=== PATIENT | female | born 1945 | race Caucasian/White ===

== ENCOUNTER 2018-08-11 01:53 | Outpatient (CLI) | payer BC, SELFPAY ==
[2018-08-11 09:20] LABS: HCT 37.2 % (36.0-46.0); HGB 12.5 g/dL (12.0-15.5)
[2018-08-11 10:04] LABS: ALT 20 U/L (12-78); AST 12 U/L (15-37); Albumin 3.4 g/dL (3.4-5.0); Alkaline Phosphatase 82 U/L (46-116); BUN 17 mg/dL (7-18); Bilirubin, Total 0.5 mg/dL (0.2-1.0); CREATININE 0.82 mg/dL (0.55-1.02); Calcium 9.3 mg/dL (8.5-10.1); Chloride 102 mmol/L (98-107); Glucose 101 mg/dL (70-100); Potassium 3.6 mmol/L (3.5-5.1); Sodium 141 mmol/L (136-145); Total Protein 6.6 g/dL (6.4-8.2)
== END 2018-08-11 02:13 ==
DX: R63.4 Abnormal weight loss (principal); E07.9 Disorder of thyroid, unspecified; I10 Essential (primary) hypertension
CPT/HCPCS: 36415; 80053; 85014; 85018

== ENCOUNTER 2019-09-04 01:27 | Outpatient (CLI) | payer BC, SELFPAY ==
--- NOTE | 2019-09-04 14:40 | DI.MAMMO_ITS ---
EXAM: MG MAMMO SCREENING CLINICAL HISTORY: screening,z12.39 TECHNIQUE: Mammograms were interpreted according to the usual protocol including computer analysis w Twonq CAD system, tomosynthesis and C-view imaging. COMPARISON: [id number] FINDINGS: The breasts are composed of scattered areas of fibroglandular density, breast density category B. Th ere are no significant masses or signficant microcalcifications. There has been no significant interv al change when compared with prior images. IMPRESSION: Category 1, negative mammogram. Yearly screening mammography is recommended. BI-RADS Cat 1 - Negative Breast Density - Category B - Scattered areas of fibroglandular density
== END 2019-09-04 01:47 ==
DX: Z12.31 Encounter for screening mammogram for malignant neoplasm of breast (principal)
CPT/HCPCS: 77063; 77067

== ENCOUNTER 2020-10-02 03:27 | Outpatient (CLI) | payer MEDICARE, BC, SELFPAY ==
[2020-10-02 11:37] LABS: ALT 16 U/L (14-59); AST 16 U/L (15-37); Albumin 3.7 g/dL (3.4-5.0); Alkaline Phosphatase 82 U/L (46-116); BUN 23 mg/dL (7-18); Bilirubin, Total 0.3 mg/dL (0.2-1.0); CREATININE 0.98 mg/dL (0.55-1.02); Calcium 8.8 mg/dL (8.5-10.1); Calculated LDL 99 mg/dL (<100); Chloride 101 mmol/L (98-107); Cholesterol 166 mg/dL (<200); Estimated GFR 55.33 (mL/min/1.73m2); Glucose 105 mg/dL (74-106); HDL Cholesterol 50 mg/dL (40-60); Potassium 3.9 mmol/L (3.5-5.1); Sodium 136 mmol/L (136-145); TSH (W/Ref FT4) 1.16 uIU/mL (0.36-3.74); Total Protein 6.4 g/dL (6.4-8.2); Triglyceride 88 mg/dL (<150)
== END 2020-10-02 03:47 ==
DX: E03.9 Hypothyroidism, unspecified (principal); I10 Essential (primary) hypertension; Z68.35 Body mass index [BMI] 35.0-35.9, adult; G47.00 Insomnia, unspecified; C4A.39 Merkel cell carcinoma of other parts of face
CPT/HCPCS: 36415; 80053; 80061; 84443

== ENCOUNTER 2020-10-06 01:06 | Outpatient (CLI) | payer MEDICARE, BC, SELFPAY ==
--- NOTE | 2020-10-06 07:15 | DI.MAMMO_ITS ---
EXAM: MG MAMMO SCREENING CLINICAL HISTORY: screening,Z12.39. TECHNIQUE: Bilateral full field digital CC and MLO mammographic images were obtained with 3D tomosyn thesis and utilizing computer aided detection (CAD). COMPARISON: Prior mammograms dating back to 2009, the most recent being August 2019. FINDINGS: Small nodular density medially in the right breast is unchanged from prior studies and therefore jose gn. There are no new dominant masses nor malignant appearing microcalcification groups. Microcalcificatio n group in the right breast located 8 centimetres in from the nipple is unchanged from prior studies. But by other benign microcalcifications are noted bilaterally. There is no new architectural disto rtion nor skin thickening-retraction. IMPRESSION: Stable benign findings. No radiographic evidence of malignancy. BI-RADS Category 2 - Benign Findings Breast Density - Category B - Scattered areas of fibroglandular density Breast density Category C or D implies that the patient has dense breast tissue. Dense breast tissue can make it harder to find cancer on a mammogram. Dense breast tissue is also associated with an incr eased risk of breast cancer. This information about the result of the mammogram report was provided to the patient to raise their awareness. Use this report when you speak with the patient about their risks for breast cancer, which includes their family history. At that time, you may recommend additional screening tests (Ultrasoun d or MRI) as these tests may add significant information. A negative radiographic report should not delay biopsy if a dominant or clinically suspicious mass is present. Up to ten percent of cancers are not identified on mammography. A negative report may reinforce clinical impression. Adenosis and dense breasts may obscure an underlying neoplasm. False positive reports average 6 to 10%. Patient will receive a letter notifying them of these results.
== END 2020-10-06 01:26 ==
DX: Z12.31 Encounter for screening mammogram for malignant neoplasm of breast (principal)
CPT/HCPCS: 77063; 77067

== ENCOUNTER 2021-09-08 08:44 | Outpatient (CLI) | payer MEDICARE, BC, SELFPAY ==
[2021-09-09 01:41] LABS: BUN 15 mg/dL (7-18); CREATININE 0.9 mg/dL (0.55-1.02); Calcium 9.3 mg/dL (8.5-10.1); Cholesterol 174 mg/dL (<200); Glucose 100 mg/dL (74-106)
[2021-09-09 01:49] LABS: Albumin 3.7 g/dL (3.4-5.0); Alkaline Phosphatase 99 U/L (46-116); Bilirubin, Total 0.4 mg/dL (0.2-1.0); Calculated LDL 107 mg/dL (<100); HDL Cholesterol 46 mg/dL (40-60); Sodium 142 mmol/L (136-145); Total Protein 6.7 g/dL (6.4-8.2); Triglyceride 108 mg/dL (<150)
[2021-09-09 01:50] LABS: ALT 18 U/L (14-59); AST 16 U/L (15-37); Anion Gap 7.7 mmol/L (3-11); CO2 30.3 mmol/L (21.0-32.0); Chloride 104 mmol/L (98-107); Potassium 4.5 mmol/L (3.5-5.1); TSH (W/Ref FT4) 1.03 uIU/mL (0.36-3.74)
== END 2021-09-08 08:45 | disposition home or self-care (01) ==
LOC: LOS 08:49
DX: E78.5 Hyperlipidemia, unspecified (principal); E87.6 Hypokalemia; I10 Essential (primary) hypertension; E04.1 Nontoxic single thyroid nodule; K21.9 Gastro-esophageal reflux disease without esophagitis
CPT/HCPCS: 36415; 80053; 80061; 84443

== ENCOUNTER 2021-10-16 01:04 | Outpatient (CLI) | payer MEDICARE, BC, SELFPAY ==
--- NOTE | 2021-10-16 08:21 | DI.MAMMO_ITS ---
Exam(s) MAMMO SCREENING EXAM: MAMMO SCREENING CLINICAL HISTORY: screening,z12.39 TECHNIQUE: Bilateral full field digital CC and MLO mammographic images were obtained with 3D tomosyn thesis and utilizing computer aided detection (CAD). COMPARISON: Available for comparison. FINDINGS: Masses/Architectural Distortion: None seen. Microcalcifications: No suspicious pleomorphic-type are seen. Skin Thickening/Nipple Retraction: None. IMPRESSION: 1. No significant interval change with no specific features of malignancy noted. 2. Unless there is more urgent need, screening mammography is recommended, as per [employer] guidelines. BI-RADS Category 1 - Negative Breast Density - Category B - Scattered areas of fibroglandular density Breast density category C or D implies that the patient has dense breast tissue. Dense breast tissue is very common and is not abnormal but dense breast tissue can make it harder to find cancer on a ma mmogram. Also, dense breast tissue may increase their breast cancer risk. This information about the result of the mammogram report was provided to the patient to raise their awareness. Use this report when you speak with the patient about their risks for breast cancer, which includes their family hist ory. At that time, you may recommend for more screening tests (Ultrasound or MRI) as they might be us eful based on their risk. A negative radiographic report should not delay biopsy if a dominant or clinically suspicious mass is present. Up to ten percent of cancers are not identified on mammography. A negative report may reinforce clinical impression. Adenosis and dense breasts may obscure an underlying neoplasm. False positive reports average 6 to 10%. Patient will receive a letter notifying them of these results.
== END 2021-10-16 01:24 ==
DX: Z12.31 Encounter for screening mammogram for malignant neoplasm of breast (principal)
CPT/HCPCS: 77063; 77067

== ENCOUNTER → 2022-05-07 10:22 | Outpatient (BNVA) | payer MEDICARE, SELFPAY | PROVIDERS: Visit Provider Physical Therapy Assistant | DX: Z86.010 Personal history of colon polyps (principal); Z80.0 Family history of malignant neoplasm of digestive organs; Z12.11 Encounter for screening for malignant neoplasm of colon ==

== ENCOUNTER 2022-05-19 08:54 | Day surgery (SDC) | payer MEDICARE, SELFPAY ==
--- NOTE | 2022-05-19 06:45 | W.COLOREPORT ---
Colonoscopy Report Date of procedure: 05/19/22 Pre-op diagnosis general: Colon Cancer Screening and Hx of polyps Post-op diagnosis procedure note: same (polyps) Procedure: Colonoscopy with polypectomy Surgeon: Lashell Peters Anesthesia Type: General:No Airway Estimated blood loss (mL): 5 Pathology: other (rectal and ascending polyp) Complications: None Disposition: same day Indications: The patient is here for Colonoscopy pre-op.?Her last screening was in 2015 , which was remarkable for tubular adenomatous polyps.? She has a family history of colon cancer in her daughter who was diagnosed in her 40s.?She has not had any bowel habit changes. -Discussed colonoscopy bowel prep as well as the procedure. Discussed possible complications of the procedure to include bleeding, pain, perforation, missed small lesion/polyp, sore throat, aspiration and adverse reaction to the medications. Questions were answered to patient?s satisfaction. No guarantees were implied or given.? Prep: Miralax/Dulcolax Procedure Start Time: 10:36 Procedure End Time: 10:58 Retraction Time: 8 minutes Findings: 2 adenomatous polyps. Both < 10 mm in size Procedure Description: After informed consent was obtained the patient was taken to the procedure room and placed in a left decubitous position. Monitors were applied and a time out was done. The patients name, date of , procedure, allergies to medications and metal in their body was reviewed. The patient was then sedated. Once sedated and comfortable a rectal exam was done. External exam was normal. Internal exam revealed a normal sphincter tone and no palpable masses. The scope was then introduced and retro-flexed. No internal hemorrhoids, polyps or masses were identified on retro-flexion. The scope was then advanced to the cecum without difficulty. The ileocecal vlave and appendiceal orifice were identified. The prep was adequate. The scope was then slowly retracted over minutes back into the rectum. Polyps were removed with cold forceps in the ascending colon and rectum. There was no diverticulosis noted. The scope was removed and the patient was woken up and taken back to Same day surgery in stable condition. The patient tolerated the procedure well and there were no immediate complications.
--- NOTE | 2022-05-19 06:47 | W.PM.DSUDISC ---
Discharge Plan Disposition Patient Disposition: HOME Condition: Good Discharge Details Reason For Visit: Colonoscopy Attending Provider: Lashell Peters Primary Care Provider: Marie Garza Home Meds and New Rx's Prescriptions: Continued atorvastatin [Lipitor] 20 mg tablet 20 mg PO DAILY Qty: 90 4RF ketoconazole 2 % cream 1 applic TP BID Qty: 15 3RF losartan-hydrochlorothiazide 50-12.5 mg tablet 1 tab PO DAILY Qty: 90 3RF polyethylene glycol 3350 [Miralax] 17 gram/dose powder 17 g PO DAILY PRN (Reason: constipation) Qty: 510 4RF latanoprost 2.5 ML drops 1 drp OU HS Discontinued bisacodyl [Dulcolax (bisacodyl)] 5 mg tablet,delayed release (DR/EC) 5 mg PO ONCE Qty: 4 0RF Rx Instructions: Take according to provider's instructions for colonoscopy prep. polyethylene glycol 3350 17 gram/dose powder 17 g PO ONCE Qty: 238 0RF Rx Instructions: To be taken as directed by prescriber's office for colonoscopy prep. Discharge Instructions Instructions: Colorectal Polyps (DC) Additional Instructions: Findings: polyps Follow up: discuss potential colonoscopy in 5 years with your PCP Please call if you develop: fevers >101.5 Nausea or Vomiting Abdominal pain that is not transient Rectal bleeding that is more then a tbsp A hard abdomen and inability to pass gas DAY SURGERY UNIT POST ENDOSCOPY INSTRUCTIONS Instructions for everyone who is given Anesthesia: For your safety, please do the following for the next 24 Hours: a. Do not drive or operate dangerous equipment b. Do not drink alcohol beverages or use any recreational drugs for the first 24 hours or while taking pain medications. The medications in your body may have a reaction that can be dangerous. c. Do not make any important decisions or sign any important papers 1. Generally there are no restrictions on your activity after a day or so has gone by, but you may feel a bit fatigued for a few days. 2. After you arrive home you may have a light meal and return to a normal diet as you can tolerate it without feeling sick to your stomach. 3. After surgery, you may feel pain or discomfort. This should be only transient, but if it persists please contact your doctor. 4. If there are any questions regarding the findings of your procedure, please feel free to contact your doctor. 6. If you are unable to contact your doctor with a problem, contact the hospital at [phone]. 7. Continue all your regular medications unless directed otherwise. I understand the above instructions and have no questions. Signature of Patient or Responsible Adult Escort Date/Time Name of Responsible Adult Escort Signature of Nurse Date/Time Activity:: Activity as Tolerated Diet:: As Tolerated Discharge Orders Discharge Orders: Discharge Order (Routine); Ordered 05/19/22 Ordered By: Lashell Peters
[2022-05-19 09:26] VITALS: BP 152/78; PULSE 77; RESP 19; TEMP 36.6; O2SAT 97
[2022-05-19] MEDS: Lactated Ringers 1,000 ML 80 ML IV (09:38)
--- NOTE | 2022-05-19 09:47 | W.ANESPRE ---
General Info Date of Service Date Performed: 05/19/22 Height: 5 ft 6 in Weight: 69.1 kg Body Mass Index (BMI): 24.5 Surgical Procedure: Operation Date: 05/19/22 10:50 Proposed Procedure Side Surgeon robby Peters MD Meds Allergies and Home Medications Allergies Allergy/AdvReac Type Severity Reaction Status Date / Time Sulfa (Sulfonamide Allergy Severe Anaphylaxis Verified 05/19/22 09:23 Antibiotics) rofecoxib Allergy Intermediate ITCHING & Verified 05/19/22 09:23 COUGH JAMI Inhibitors AdvReac Intermediate COUGH & Verified 05/19/22 09:23 IRREGULAR HEART BEAT oxycodone [Oxycodone] AdvReac Intermediate GI UPSET Verified 05/19/22 09:23 Home Medication Medication Instructions Recorded latanoprost 0.005 % eye drops 1 drp OU HS 05/27/15 atorvastatin 20 mg tablet (Lipitor) 20 mg PO DAILY #90 tab-caps 09/17/21 ketoconazole 2 % topical cream 1 applic topical BID #15 grams 09/17/21 losartan 50 mg-hydrochlorothiazide 1 tab PO DAILY #90 tabs 09/17/21 12.5 mg tablet polyethylene glycol 3350 17 17 g PO DAILY PRN constipation 09/17/21 gram/dose oral powder (Miralax) #510 grams bisacodyl 5 mg tablet,delayed 5 mg PO ONCE #4 tabs 05/07/22 release (Dulcolax (bisacodyl)) polyethylene glycol 3350 17 17 g PO ONCE #238 grams 05/07/22 gram/dose oral powder Current Visit Medications: Current Medications Generic Name Dose Route Start Last Admin Trade Name Bonillaq PRN Reason Stop Dose Admin Hyoscyamine Sulfate 0.125 mg 05/19/22 06:48 Hyoscyamine 0.125 Mg Sl/Oral/Chew SL DIRECTED PRN Ringer's Solution 1,000 mls @ 80 mls/hr 05/19/22 06:00 05/19/22 09:38 IV 06/17/22 23:59 80 mls/hr INFUSION EMILY Administration IV Miscellaneous Supplies 1 each 05/19/22 06:00 Iv Access IV 06/17/22 23:59 DIRECTED EMILY Ondansetron HCl 4 mg 05/19/22 06:48 Ondansetron 4 Mg/2 Ml Vial IVP Q4H PRN PRN Nausea / Vomiting Sodium Chloride 0 ml 05/19/22 06:00 Normal Saline Flush 10 Ml Syr IV 06/17/22 23:59 PRN PRN Sodium Chloride 0 ml 05/19/22 06:00 Normal Saline 10 Ml Vial IJ 06/17/22 23:59 DIRECTED PRN Sterile Water 0 ml 05/19/22 06:00 Water,Injection,Sterile 10 Ml Vial IJ 06/17/22 23:59 DIRECTED PRN PFSH Active Problems Active Problems: Problem Status Onset Code Family history of malignant neoplasm of digestive organ Z80.0 Epigastric pain R10.13 Impaired fasting glucose 12/07/12 R73.01 Tubular adenoma 09/15/16 D36.9 Screening for colon cancer Z12.11 Medical History Medical History Angular cheilitis with candidiasis BMI 35.0-35.9,adult Chronic rhinitis (01/19/18) Depression Essential hypertension Gastroesophageal reflux disease (01/31/14) GERD (gastroesophageal reflux disease) 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 denies Colonoscopy - IV Sedation (09/15/16) History of surgical removal of skin lesion Replacement of total knee joint 05/08; LEFT 2009; RIGHT Tobacco Smoking/Tobacco Use Status: Never Passive smoking exposure: No Second hand exposure: Yes Alcohol Alcohol Intake: never Substance Use Substance use: Never Substance use type: does not use Counseling provided: none Prental History History Para 3 Hx # Term Pregnancies Multiple births Hx # Pregnancies Ectopic pregnancies AB induced Hx Number of Living Children AB spontaneous Vital Signs and Lab Results Vital Signs Most Recent Vital Signs in EMR: Most Recent Vital Signs Temp Pulse Resp BP Pulse Ox 36.6 C 77 19 152/78 H 97 05/19/22 09:26 05/19/22 09:26 05/19/22 09:26 05/19/22 09:26 05/19/22 09:26 Lab Results Blood Type / Crossmatch: No Data to Display Complete Blood Count: No Data to Display Complete Metabolic Panel: No Data to Display Liver Function Panel: No Data to Display Coagulation Panel: No Data to Display Cardiac Panel: No Data to Display Arterial Blood Gas: No Data to Display Venous Blood Gas: No Data to Display Pancreas Panel: No Data to Display Thyroid Panel: No Data to Display Infectious Disease: No Data to Display Blood Cultures: No Data to Display Toxicology Panel: No Data to Display Anesthesia Assessment and Plan Anesthesia History Personal History: No History of Anesthesia Complications Family History: No Family History of Anesthesia Complications Exercise Tolerance Exercise Tolerance: Metabolic Equivalents>4 Pertinent Negatives Pertinent Negatives: No Symptoms of GERD (Dietary controlled), No Major Cardiovascular Symptoms or Complaints, No Major Pulmonary Symptoms or Complaints and No History of CVA/TIA Cardiac & Pulmonary Exam Cardiac Exam: Normal S1/S2 Heart Sounds Pulmonary Exam: Clear Bilateral Breath Sounds Implantable Cardiac Device Does patient have a Pacemaker or an ICD?: No Airway Exam Known Difficult Airway: No Mallampati Class: 2 Mouth Opening: Normal (> 3cm) Thyromental Distance: Greater than 3 cm Neck Range of Motion: Full ROM Neck Circumference: Normal Teeth Condition: Removable Dentures/Plates Upper and Removable Dentures/Plates Lower ASA Classification ASA Score: ASA 2 Emergency Case?: No NPO Status NPO Status: NPO Clears >2 hours, Solids >8 hours Anesthesia Plan Resuscitation Status: Full Code Anesthesia Technique: General Anesthesia Airway Planned: Natural Airway Monitors Used: Standard Monitors
[2022-05-19 09:49] VITALS: BMI 24.5
--- NOTE | 2022-05-19 10:40 | BOWEL_PTH ---
PATIENT: Sabrina Pascal LOC: [facility] U#:[id number] AGE/SX: 76/F ROOM: RE05/19/[address]: Lashell Peters MD : 1945 BED: DIS: 05/19/2022 SPEC #: [id number] RECD: 05/19/22 13:03 STATUS: VERNON RERosario #: [id number] SOURAV: 05/19/22 10:[address]: Lashell Peters DEPT: Surgical Specimen RECD BY: Kat Rodriguez ENTERED: 05/19/22 13:05 SP TYPE: Bowel OTHR DR: Marie Garza APRN Tissues: 1 - BIOPSY BOWEL 2 - BIOPSY BOWEL Procedures: GROSS AND MICRO LEVEL 4 Comments: [id number]
[2022-05-19 11:15] VITALS: BP 123/88; PULSE 77; RESP 18; TEMP 36; O2SAT 99
--- NOTE | 2022-05-19 11:17 | W.ANESPOSTOP ---
Postoperative Evaluation Date, Time and Location Date Performed: 05/19/22 Time Performed: 11:18 Patient Location: Day Surgery Unit Vital Signs Most Recent Imported Vital Signs: Most Recent Vital Signs Temp Pulse Resp BP Pulse Ox 36.6 C 77 19 152/78 H 97 05/19/22 09:26 05/19/22 09:26 05/19/22 09:26 05/19/22 09:26 05/19/22 09:26 Most Recent Manually Entered Vital Signs: Adult Blood Pressure: 123/88 Heart Rate: 84 Respirations: 10 Oxygen Saturation (%): 99 Temperature (C): 36 C Pain Score (0-10 Scale): 0 Pain Score Most Recent Pain Score: Most Recent Pain Score Pain Level 0 05/19/22 09:26 Assessment Mental Status: Awake (Alert & Oriented to Patient Baseline) Airway and Respiratory Function: Patent airway with normal (patient baseline) respiratory exam Cardiovascular Function: Hemodynamically Stable Hydration Status: Adequately Hydrated Nausea & Vomiting: No Nausea or Vomiting Pain: Pt. Denies Any Pain Peripheral Nerve Block: Patient did not receive a nerve block
[2022-05-19 11:19] VITALS: BP 123/88; PULSE 84; RESP 10; TEMPC 36; O2SAT 99
[2022-05-19 11:46] VITALS: BP 163/86; PULSE 70; RESP 18; TEMP 36.4; O2SAT 99
== END 2022-05-19 12:15 | disposition home or self-care (01) ==
PROVIDERS: Visit Provider Surgery
PROC: 0DJD8ZZ Inspection of Lower Intestinal Tract, Via Natural or Artificial Opening Endoscopic (ICD-10-PCS; CPT 45378; principal; 2022-05-19 10:45)
DX: Z12.11 Encounter for screening for malignant neoplasm of colon (principal); K63.5 Polyp of colon; Z86.010 Personal history of colon polyps; Z80.0 Family history of malignant neoplasm of digestive organs
CPT/HCPCS: 45380; 88305

== ENCOUNTER 2022-09-09 13:35 | Outpatient (CLI) | payer MEDICARE, SELFPAY ==
--- NOTE | 2022-09-09 13:30 | RT.EKG_ITS ---
APPROVED REPORT Exam: Resting ECG Reason for Exam: BP check Patient Location: O HR:67 bpm ECG Measurements Heart Rate 67 AXIS PA 162 P 76 QRSd 83 QRS 48 QT 414 T 62 QTc 437 Conclusion Sinus rhythm...normal P axis, V-rate 50- 99 Normal Electrocardiogram
== END 2022-09-09 13:36 | disposition home or self-care (01) ==
LOC: DI.CM 13:36
PROVIDERS: PCP Nurse Practitioner Family; Visit Provider Family Medicine
DX: R07.9 Chest pain, unspecified (principal)
CPT/HCPCS: 93010

== ENCOUNTER 2022-09-24 14:13 | Outpatient (CLI) | payer MEDICARE, SELFPAY ==
[2022-09-24 13:25] LABS: ALT 14 U/L (14-59); AST 19 U/L (15-37); Albumin 3.8 g/dL (3.4-5.0); Alkaline Phosphatase 94 U/L (46-116); Anion Gap 4.8 mmol/L (3-11); BUN 18 mg/dL (7-18); Bilirubin, Total 0.3 mg/dL (0.2-1.0); CO2 31.2 mmol/L (21.0-32.0); Calcium 9.8 mg/dL (8.5-10.1); Calculated LDL 94 mg/dL (<100); Chloride 102 mmol/L (98-107); Cholesterol 170 mg/dL (<200); Estimated GFR 58.02 (mL/min/1.73m2); Glucose 93 mg/dL (74-106); HDL Cholesterol 50 mg/dL (40-60); Potassium 4.5 mmol/L (3.5-5.1); Sodium 138 mmol/L (136-145); Total Protein 7.6 g/dL (6.4-8.2); Triglyceride 130 mg/dL (<150)
[2022-09-28 12:19] LABS: SS-B (La) Ab, IgG 0.9 Units (<20.0)
== END 2022-09-24 14:14 | disposition home or self-care (01) ==
LOC: LBO 14:13
PROVIDERS: Family Medicine; PCP Nurse Practitioner Family
DX: E87.6 Hypokalemia (principal); I10 Essential (primary) hypertension; R10.13 Epigastric pain; E78.5 Hyperlipidemia, unspecified; C4A.30 Merkel cell carcinoma of unspecified part of face; R68.2 Dry mouth, unspecified
CPT/HCPCS: 36415; 80053; 80061; 86235

== ENCOUNTER 2022-10-13 12:34 | Outpatient (CLI) | payer MEDICARE, SELFPAY ==
--- NOTE | 2022-10-13 12:30 | RT.EKG_ITS ---
APPROVED REPORT Exam: Resting ECG Reason for Exam: chest discomfort Patient Location: O HR:82 bpm ECG Measurements Heart Rate 82 AXIS MA 150 P 50 QRSd 87 QRS 55 QT 373 T 68 QTc 436 Conclusion Sinus rhythm...normal P axis, V-rate 50- 99 Ventricular trigeminy...trigeminy string>6 w/ V complexes
== END 2022-10-13 12:35 | disposition home or self-care (01) ==
LOC: DI.CM 12:35
PROVIDERS: PCP Nurse Practitioner Family; Visit Provider Nurse Practitioner Family
DX: R07.89 Other chest pain (principal)
CPT/HCPCS: 93010

== ENCOUNTER 2022-10-13 13:05 | Emergency (ER) | payer MEDICARE, SELFPAY ==
[2022-10-13] VITALS (58 sets, daily range): BP systolic 111–182; BP diastolic 54–105; PULSE 40–98; RESP 11–30; TEMP 36.8; O2SAT 94–100
--- NOTE | 2022-10-13 13:00 | RT.EKG_ITS ---
APPROVED REPORT Exam: Resting ECG Reason for Exam: bradycardia, chest pressure Patient Location: E HR:81 bpm ECG Measurements Heart Rate 81 AXIS ID [id number] P [id number] QRSd 79 QRS 40 QT 385 T 32 QTc 448 Conclusion Atrial flutter...A-rate 319 Ventricular bigeminy...bigeminy string>4 w/ V complexes motion artifact, appears sinus not aflutter
--- NOTE | 2022-10-13 13:15 | RT.EKG_ITS ---
APPROVED REPORT Exam: Resting ECG Reason for Exam: bradycardia, chest pressure Patient Location: E HR:81 bpm ECG Measurements Heart Rate [address] 161 P 81 QRSd 79 QRS 47 QT 400 T 61 QTc 464 Conclusion Sinus rhythm...normal P axis, V-rate 60- 99 Ventricular bigeminy...bigeminy string>4 w/ V complexes
--- NOTE | 2022-10-13 14:06 | ED.GENADUL_ITS ---
Discharge Plan Disposition Patient Disposition: Home Condition: Improving Condition: Stable Discharge Details Chief Complaint: Chest Pain Clinical Impression: Chest pain Primary Care Provider: Michael Tavera ED Provider: Nguyễn Elder Home Meds and New Rx's Prescriptions: No Action atorvastatin [Lipitor] 20 mg tablet 20 mg PO DAILY Qty: 90 4RF ketoconazole 2 % cream 1 applic TP BID Qty: 15 3RF polyethylene glycol 3350 [Miralax] 17 gram/dose powder 17 g PO DAILY PRN (Reason: constipation) Qty: 510 4RF losartan-hydrochlorothiazide 100-25 mg tablet 1 tab PO DAILY Qty: 30 3RF latanoprost 2.5 ML drops 1 drp OU HS Discharge Instructions Instructions: Chest Pain (ED) Additional Instructions: Please follow-up with your primary care physician. Medical Decision Making 77 yo female with hx of htn, hld, who comes in with cc of chest pain intermittently for 3 weeks with radiation to the upper back. She can't think of what brings her symptoms on other than when she experiences them she notes her HR is normally in the 30's. She denies loc, no diaphoresis, no n/v. She currently has no pain. She is caox4 speaking clearly, is hypertensive at 156/105 pulse is 44 in sinus with frequent pvc's. She has clear lungs, no murmurs, no jvd, no leg swelling or calf tenderness. Unclear etiology for her symptoms of chest pain and upper back pain. Will obtain troponin, cbc, cmp and also cta to assess for possible dissection labs unremarakble, patient stable, cta pending. Pt signed out to oncoming provider pending CTA, delta troponin, dispo Differential Diagnosis Differential Diagnosis: nstemi, bradycardia, dissection Lab Data Lab results reviewed: Yes I reviewed the patient's lab results. ECG Data Attestation: I personally reviewed and interpreted this ECG (s) as follows: Prior ECG tracings: available for review Interpretation: sinus rhythm, rate of 81, pr 161, no acute st t wave ischemic findings, has frequent pvc's. HPI General Mode of arrival: ambulatory . Date/Time Provider Initiated Documentation: 10/13/22 13:29 . Limitations to Documentation: no limitations . Information obtained by: patient . History of Present Illness 77 year old F presents to the emergency department with the chief complaint of chest pain, described as moderate, Quality is described as stabbing, and is localized to the chest. Patient reports radiation to back. Patient started experiencing this week(s) (3) and it has been intermittent. No relieving factors improve symptom(s), No exacerbating factors reported . Patient notes chest pain; denies cough, fever/chills and shortness of breath. Patient did receive the following treatments prior to arrival, none Related Data Home Medications Medication Instructions Recorded Confirmed latanoprost 0.005 % eye drops 1 drp OU HS 05/27/15 10/13/22 atorvastatin 20 mg tablet (Lipitor) 20 mg PO DAILY #90 tab-caps 09/17/21 10/13/22 ketoconazole 2 % topical cream 1 applic topical BID #15 grams 09/17/21 10/13/22 polyethylene glycol 3350 17 17 g PO DAILY PRN constipation 09/17/21 10/13/22 gram/dose oral powder (Miralax) #510 grams losartan 100 1 tab PO DAILY #30 tabs 09/24/22 10/13/22 mg-hydrochlorothiazide 25 mg tablet Previous Rx's Medication Instructions Recorded atorvastatin 20 mg tablet (Lipitor) 20 mg PO DAILY #90 tab-caps 09/17/21 ketoconazole 2 % topical cream 1 applic topical BID #15 grams 09/17/21 polyethylene glycol 3350 17 17 g PO DAILY PRN constipation 09/17/21 gram/dose oral powder (Miralax) #510 grams losartan 100 1 tab PO DAILY #30 tabs 09/24/22 mg-hydrochlorothiazide 25 mg tablet Allergies Allergy/AdvReac Type Severity Reaction Status Date / Time Sulfa (Sulfonamide Allergy Severe Anaphylaxis Verified 10/13/22 13:17 Antibiotics) rofecoxib Allergy Intermediate ITCHING & Verified 10/13/22 13:17 COUGH JAMI Inhibitors AdvReac Intermediate COUGH & Verified 10/13/22 13:17 IRREGULAR HEART BEAT oxycodone [Oxycodone] AdvReac Intermediate GI UPSET Verified 10/13/22 13:17 General Stated Complaint: Chest Pain VIC: 2 Review of Systems All systems reviewed & are unremarkable except as noted in HPI and below Constitutional Constitutional: Denies chills, Denies fever(s) and Denies weakness Cardiovascular Cardiovascular: Denies dyspnea Respiratory Respiratory: Denies cough and Denies dyspnea Gastrointestinal Gastrointestinal: Denies abdominal pain, Denies nausea and Denies vomiting Integumentary/Breasts Skin/Breast: Denies rash Neurologic Neurologic: Denies weakness PFSH All Active Problems (Updated 10/13/22 @ 15:41 by Alex Pemberton MD) Chest pain (Acute) Hyperlipidemia (Acute) Impaired fasting glucose (Acute 12/07/12) Tubular adenoma (Acute 09/15/16) Essential hypertension (Acute) Plantar fasciitis (Acute) Corns and callosities (Acute) Nail dystrophy (Acute) Medical History Angular cheilitis with candidiasis BMI 35.0-35.9,adult Chronic rhinitis (01/19/18) Depression Family history of malignant neoplasm of digestive organ Gastroesophageal reflux disease (01/31/14) Idiopathic scoliosis 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 denies Colonoscopy - IV Sedation (09/15/16) History of colonoscopy (~04/2022) History of surgical removal of skin lesion Replacement of total knee joint 05/08; LEFT 2009; RIGHT Family History Mother , age 84 Diabetes Essential hypertension Heart disease Hyperlipidemia Uterine cancer Father , UNKNOWN at age 86. Essential hypertension Brother Essential hypertension Diabetes Maternal Grandmother , age 90 Diabetes Essential hypertension Heart disease Alcohol abuse Daughter Rectal cancer Sister Essential hypertension Abdominal aneurysm Maternal Grandfather , age 90 Diabetes Alcohol abuse Heart disease Paternal Grandfather , age 89 Heart disease Hypertension Paternal Grandmother , age 88 Heart disease Son No problems noted. Daughter No problems noted. Sister Cancer lung Social History Smoking/Tobacco Use Status: Never Second Hand Exposure: Yes Smoking risk assessment performed?: Yes Alcohol Intake: never Drug use: Never Substance use type: does not use Counseling provided: none Caregiver/Support person: No Household members: significant other Housing: house Communication Needs: None Do you need help understanding health information?: Rarely current occupation: TEACHER Pets and animals: No Sexually active: No Do you think of yourself as: straight/heterosexual Current gender identity: female What is your relationship status?: living with partner How often do you talk on the phone with friends or family?: three or more times per week How often do you get together with friends or relatives?: once per week How often do you attend anglican or quaker services?: 4 or more times per year Do you belong to any clubs or organized social groups?: no Panel score (0-1 are the most socially isolated patients): 3 What type of physical activity do you participate in: walking Duration: 15-30 minutes/day Frequency: 3-4 times per week Fadia/Oriental Orthodox: Islam Special fadia needs: No Seatbelt use: always Helmet use: Yes Helmet use: always Drive intox or ride w/intox national van truck driver: No Do you feel safe at home: Yes Do you feel safe in your relationship?: Yes History History Para 3 Hx # Term Pregnancies Multiple births Hx # Pregnancies Ectopic pregnancies AB induced Hx Number of Living Children AB spontaneous Exam Const General: no acute distress Orientation: alert HENMT Head: normal to inspection Ears: external ears normal General nose exam: external nose normal Mouth: moist mucous membranes Eyes General: appearance normal, both eyes and all related structures Neck Neck: normal visual inspection Resp Effort & Inspection: normal respiratory effort and able to speak in complete sentences Auscultation: clear to auscultation bilaterally Cardio Jugular venous pressure: no JVD Rate: regular rate Heart Sounds: no murmurs GI Palpation: soft and nontender Skin General skin exam: no rashes or lesions noted Neuro General: patient alert and patient oriented x3 Extrem General: normal to inspection Psych Mental Status: mental status grossly normal Course Vital Signs Vital signs: Vital Signs Temperature 36.8 C 10/13/22 13:11 Pulse 44 L 10/13/22 13:11 Respiratory Rate 18 10/13/22 13:11 Blood Pressure 156/105 H 10/13/22 13:11 Pulse Oximetry 99 10/13/22 13:11 Temperature 36.8 C 10/13/22 13:11 Temperature Source Temporal Artery Scan 10/13/22 13:11 Pulse 44 L 10/13/22 13:11 Respiratory Rate 18 10/13/22 13:19 Respiratory Effort Non-Labored 10/13/22 13:19 Respiratory Depth Normal 10/13/22 13:19 Respiratory Pattern Normal 10/13/22 13:19 Blood Pressure 156/105 H 10/13/22 13:11 Blood Pressure Position Sitting 10/13/22 13:11 Pulse Oximetry 99 10/13/22 13:11 Oxygen Delivery Method Room Air 10/13/22 13:11 Oxygen Flow Rate 0 10/13/22 13:11 Pain Level 2 10/13/22 13:11 Sign Out Sign Out Data: Sign Out Comment: intermittent chest pain radiating to the back for 2-3 weeks and states heart rate would be in the 30's, initial troponin negative, cta pending as well as delta troponin Last updated by Alex Pemberton MD at 10/13/22 15:26
[2022-10-13 14:11] LABS: Abs Immature Grans 0.03 10^3/uL (0.0-0.06); Absolute Basophil Count 0.04 10^3/uL (0.0-0.2); Absolute Eosinophil Count 0.06 10^3/uL (0.0-0.7); Absolute Lymphocyte Count 1.32 10^3/uL (1.2-3.4); Absolute Neutrophil Count 5.14 10^3/uL (1.2-6.7); Basophils % 0.6; Eosinophils % 0.8; HCT 39.8 % (36.0-46.0); Immature Grans % 0.4; Lymphocytes % 18.4; MCH 28.6 pg (27.0-33.0); MCHC 32.7 % (32.0-36.0); MCV 88 fL (80-95); MPV 9.6 fL (8.0-11.0); Monocytes % 8.3; Neutrophils % 71.5; Platelet Count 222 10^3/uL (130-400); RBC 4.55 10^6/uL (3.93-5.22); RDW 12.5 % (11.7-14.6); RDW-SD 40.2 fL; WBC 7.19 10^3/uL (4.4-10.8)
--- NOTE | 2022-10-13 14:11 | NUR.NOTE ---
Nursing Note: PT DENIES CURRENT C/O CHEST PAIN OR SOB, IV STARTED, BLOOD DRAWN, BLOCKER AND POLISHER INITIATED & VS MONITORED.
[2022-10-13 14:29] LABS: ALT 18 U/L (14-59); AST 18 U/L (15-37); Albumin 3.8 g/dL (3.4-5.0); Alkaline Phosphatase 102 U/L (46-116); Anion Gap 7.4 mmol/L (3-11); BUN 15 mg/dL (7-18); Bilirubin, Total 0.4 mg/dL (0.2-1.0); CO2 29.6 mmol/L (21.0-32.0); Calcium 9.4 mg/dL (8.5-10.1); Chloride 102 mmol/L (98-107); Estimated GFR 58.02 (mL/min/1.73m2); Glucose 99 mg/dL (74-106); Potassium 3.7 mmol/L (3.5-5.1); Sodium 139 mmol/L (136-145); Total Protein 7.5 g/dL (6.4-8.2); Troponin I < 50 ng/L (<or=60)
[2022-10-13 14:39] LABS: INR 0.9 (0.9-1.1); PTT Activated 22.6 sec (21.0-27.5); Prothrombin Time 9.5 sec (9.3-11.0)
--- NOTE | 2022-10-13 15:14 | NUR.NOTE ---
Nursing Note: PT IN DI FOR ORDERED EXAMS, NO CURRENT COMPLAINTS OF CHEST PAIN/PRESSURE.
[2022-10-13 15:15] LABS: Lipase 100 U/L (73-393)
[2022-10-13] MEDS: Omnipaque 350 MG/ML 100 ML BTL IJ (15:15)
--- NOTE | 2022-10-13 15:15 | DI.CT_ITS ---
Exam(s) CT THORAX CTA EXAM: CT THORAX CTA CLINICAL HISTORY: chest pain radiating to the back. TECHNIQUE: Imaging Protocol: Axial CT angiography was performed with multi-slice acquisition and mu lti-planar and/or 3D reconstructions. CONTRAST MATERIAL: Intravenous: Omnipaque 350 contrast volume:100 mL COMPARISON: CT ABD PELVIS WITH CONTRAST from 08/16/2017 FINDINGS: The examination is limited due to patient motion artifact. Tracheobronchial tree: Patent where visualized. Pulmonary parenchyma: No consolidation or dominant measurable mass. Dependent atelectatic changes are seen in the lung bases. Pulmonary Arteries: No evidence of filling defect to suggest pulmonary emboli. Mediastinum and Iza: No dominant adenopathy or fluid collection. The esophagus is unremarkable. Visualized thyroid gland: There is a 1 cm nodule in the right lobe of the thyroid gland. Nonemergent thyroid ultrasound may be obtained for further evaluation. Pleura: No effusion or pneumothorax. Heart: The heart is not dilated. Coronary artery calcifications are present. No pericardial effusion. Aorta: Thoracic aorta non-dilated. No evidence of dissection. Atherosclerosis is present. Upper abdomen: Unremarkable. Soft tissues: Unremarkable. Bones: Within normal limits for the patient's age. IMPRESSION: 1. No evidence of pulmonary embolism, thoracic aortic dissection or aneurysm. 2. Findings were discussed with the emergency department at 3:56 p.m. on 10/13/2022. RADIATION DOSE DELIVERED: 364.57mGy.cm Total DLP 364.57mGy.cm Total DLP DATA REPOSITORY: All CT scans at this facility are submitted to the National Radiology Data Registry (NRDR) Dose Index Registry (DIR) with the [employer] (ACR). RADIATION OPTIMIZATION: All CT scans at this facility use at least one of these dose optimization te chniques: automated exposure control; mA and/or kV adjustment per patient size (includes targeted exa ms where dose is matched to clinical indication); or iterative reconstruction.
[2022-10-13] MEDS: Normal Saline - Diluent 50 ML VIAL IJ (15:16)
--- NOTE | 2022-10-13 15:25 | NUR.NOTE ---
Nursing Note: PT RETURN FROM DI, MONITORS MAINTAINED, NO COMPLAINTS AT THIS TIME.
--- NOTE | 2022-10-13 15:45 | RT.EKG_ITS ---
APPROVED REPORT Exam: Resting ECG Reason for Exam: chest pain Patient Location: E HR:69 bpm ECG Measurements Heart Rate 69 AXIS OR 157 P -18 QRSd 76 QRS 6 QT 416 T -4 QTc 445 Conclusion Sinus rhythm...normal P axis, V-rate 60- 99 Ventricular bigeminy...bigeminy string>4 w/ V complexes sinus rhythm, normal axis, PVCs
--- NOTE | 2022-10-13 16:03 | NUR.NOTE ---
Nursing Note: PT C/O CHEST PRESSURE AT THIS TIME, PROVIDER AWARE, REPEAT EKG DONE, VS RECORDED, PROVIDER TO EVALUATE PT.
[2022-10-13 19:01] LABS: Troponin I < 50 ng/L (<or=60)
== END 2022-10-13 20:59 | disposition home or self-care (01) ==
PROVIDERS: Emergency Medicine; Emergency Provider Emergency Medicine; PCP Nurse Practitioner Family
DX: R07.89 Other chest pain (principal); I10 Essential (primary) hypertension; E78.5 Hyperlipidemia, unspecified
CPT/HCPCS: 36415; 71275; 80053; 83690; 93005; 99285; 84484; 85025; 85610; 85730; 93010; J3490

== ENCOUNTER 2022-10-28 09:48 | Outpatient (RCR) | payer MEDICARE, SELFPAY ==
--- NOTE | 2022-10-28 09:45 | HOLTER_ITS ---
APPROVED REPORT Conclusion This is a 48-hour Holter monitor ordered for bradycardia Predominant rhythm was sinus with an average heart rate of 77. Minimum was 53, maximum 137 There were moderately frequent premature ventricular contractions, rare couplets, very rare triplets There were rare atrial premature beats There was no atrial fibrillation, supraventricular tachycardia, high-grade AV block or pauses greater than 3 seconds No patient symptoms were reported
== END 2022-10-30 23:59 | disposition home or self-care (01) ==
LOC: CARDOPNVT 09:48
PROVIDERS: PCP Nurse Practitioner Family
DX: R00.1 Bradycardia, unspecified (principal); I44.39 Other atrioventricular block
CPT/HCPCS: 93227; 93225; 93226

== ENCOUNTER 2022-11-29 11:05 | Outpatient (CLI) | payer MEDICARE, SELFPAY ==
--- NOTE | 2022-11-29 11:00 | RT.EKG_ITS ---
APPROVED REPORT Exam: Resting ECG Reason for Exam: cardiac evaluation Patient Location: O HR:81 bpm ECG Measurements Heart Rate 81 AXIS NC 166 P 74 QRSd 86 QRS 53 QT 376 T 55 QTc 437 Conclusion Sinus rhythm...normal P axis, V-rate 50- [address] abnormalities
== END 2022-11-29 11:06 | disposition home or self-care (01) ==
LOC: DI.CARD 11:06
PROVIDERS: PCP Nurse Practitioner Family; Visit Provider Internal Medicine Cardiovascular Disease
DX: R00.1 Bradycardia, unspecified (principal)
CPT/HCPCS: 93010

== ENCOUNTER → 2022-11-29 11:09 | Outpatient (BNVA) | payer MEDICARE, SELFPAY | PROVIDERS: PCP Nurse Practitioner Family; Referring Provider Nurse Practitioner Family; Visit Provider Internal Medicine Cardiovascular Disease | DX: R00.1 Bradycardia, unspecified (principal); R07.89 Other chest pain; I10 Essential (primary) hypertension | CPT/HCPCS: 93005; 99203; 99214 ==

== ENCOUNTER 2023-01-20 02:57 | Outpatient (CLI) | payer MEDICARE, SELFPAY ==
--- NOTE | 2023-01-20 06:30 | DI.NM_ITS ---
APPROVED REPORT Exam: Exercise Treadmill Patient Location: Out-Patient Room/Bed: Stress Nurse: Peace Caceres RN Ordering Provider:QUAN ALEXANDER, Contact Number: [phone] BMI: 24.20 Baseline Rhythm: Sinus Rhythm Comment: Frequent PVC's Indications: Chest pain, HTN, PVC's. Medical History Medical History: PVC's, bradycardia, HLD, HTN, impaired fasting glucose Cardiac Medications: Losartan and HTZ, atorvastatin, aspirin, latanoprost Allergies: Sulfa, rofecoxib, JAMI inhibitors, oxycodone Cardiac Risk Factors: Family hx, HTN, HLD Previous Cardiac Procedures: Cardiac cath (1995) Pretest Chest Pain Characteristics: None Exercise History: Indeterminate Physical Disabilities: None Lung Sounds: Clear to auscultation Heart Sounds: Regular Stress Test Details Test: Exercise stress testing was performed using a Parrish protocol. Nuclear Acquisition: Rest Tc-99m/Stress Tc-99m 1 day Rest Isotope: Tc-99m Sestamibi. Dose: 10.0 Date: 01/20/2023 Injection Time: 0830 Stress Isotope: Tc-99m Sestamibi. Dose: 32.0 Date: 01/20/2023 Injection Time: 1020 HR Resting HR Supine: 64 bpm Max Heart Rate (APMHR): 143.744630 bpm Resting HR Standin bpm Target HR (85% APMHR): 121.231233 bpm Max HR Achieved: 148 bpm % of APMHR: 103.50 Recovery HR: 74 bpm HR response to stress: Normal HR response to stress BP Resting BP Supine: 148/86 mmHg Resting BP Standin/88 mmHg Max BP: 204/82 mmHg Recovery BP: 148/78 mmHg BP response to stress: Normal blood pressure response to stress. ECG Resting ECG: Sinus Rhythm Ectopy: Frequent PVC's Stress ECG: Sinus Tachycardia ST Change: No significant ST segment changes noted Arrhythmia: Frequent PVC's, rare bigeminy and trigeminy and rare couplets. Recovery ECG: Sinus Rhythm Recovery ST Change: No significant ST segment changes noted Recovery Arrhythmia: Frequent PVC's, rare couplets, rare PAC's rare bigeminy Clinical Reason for Termination: Target HR Achieved, Fatigue Stress Symptoms: General Fatigue Exercise duration: 3 min59 sec Highest Stage Reached: Stage 2: 2.5 mph at 12% grade. Exercise capacity: 5.8 METs Angina Score: None Acevedo Treadmill Score: 3.5 Rate Pressure Product: [id number] Stress ECG Conclusion 1. The resting electrocardiogram showed voltage for left ventricular hypertrophy 2. Patient exercised on Parrish protocol for 4 minutes and achieved a workload of 5.8 METS. 3. Normal heart rate and blood pressure response to exercise. The patient achieved 100% of predicted heart rate for age 4. The electrocardiographic portion of the test did not demonstrate myocardial ischemia 5. Atrial and ventricular ectopic beats were noted 6. See MPI report Acevedo Treadmill Score is 3.5 which is Moderate risk. Stress Test Summary STAGE Time (mins) Speed (mph) Grade (%) HR BP SpO2 SYMPTOMS METS Supine 64 148/88 Standing 90 138/88 1 3 1.7 10 138 202/88 4.5 2 6 2.5 12 146 202/88 7 1 min recovery 86 184/82 3 min recovery 74 148/78 97 MPI Conclusion Myocardial perfusion is normal. There is no ischemia or evidence of prior infarction EF is 54% with normal wall motion Radiologist Interpretation Radiologist agrees with Fern Picker's Interpretation. Radiologist Interpretation by: Zoe Villanueva MD Interpretation Date/Time: 01/24/2023 18:30:57
== END 2023-01-20 03:17 ==
LOC: DI 02:58
PROVIDERS: PCP Nurse Practitioner Family; Visit Provider Internal Medicine Cardiovascular Disease
DX: I10 Essential (primary) hypertension (principal); I49.3 Ventricular premature depolarization; R07.9 Chest pain, unspecified
CPT/HCPCS: 78452; 93016; 93018; 93017

== ENCOUNTER 2023-05-13 00:52 | Outpatient (CLI) | payer MEDICARE, SELFPAY ==
--- NOTE | 2023-05-13 12:15 | DI.US_ITS ---
APPROVED REPORT EXAM: Comprehensive 2D, Doppler, and color-flow Echocardiogram Patient Location: Out-Patient Tankerman: Daisha Aguilera RDCS (AE) Indications: PVC'S, Chest pain, HTN Other Information Study Quality: Adequate Conclusion The left ventricular wall thickness and chamber size. Ejection fraction is 55 to 60%. Wall motion i s normal Normal right ventricular size and systolic function Both atria are normal in size There is no structural or hemodynamically significant valvular disease Wall motion Left Ventricle The left ventricle is normal size. The left ventricular systolic function is normal. The left ventric ular ejection fraction is within the normal range. There is normal left ventricular wall thickness. T here is normal LV segmental wall motion. There is no ventricular septal defect visualized. LVEF is 57 %. Right Ventricle The right ventricle is normal size. The right ventricular systolic function is normal. Atria The left atrium size is normal. The right atrium size is normal. The interatrial septum is intact wit h no evidence for an atrial septal defect. Aortic Valve The aortic valve is normal in structure. Aortic valve is trileaflet. There is no aortic valvular sten osis. No aortic regurgitation is present. Mitral Valve The mitral valve is normal in structure. No evidence of mitral valve stenosis. Trace mitral regurgita tion. Tricuspid Valve The tricuspid valve is normal in structure. There is no tricuspid valve stenosis. Trace tricuspid reg urgitation. Unable to assess PA pressure. Pulmonic Valve The pulmonary valve is normal in structure. There is no pulmonic valvular stenosis. Trace pulmonic re gurgitation. Great Vessels The aortic root is normal in size. The ascending aorta is normal in size. Aortic arch is not well vis ualized. IVC is normal in size and collapses >50% with inspiration. Pericardium There is no pericardial effusion. 2D Dimensions IVSD d PLAX 0.91 cm F: 0.6-1.0 LV Vol A2C d MOD 66.5 mL LVPW d PLAX 0.91 cm F: 0.6 - 1.0 LV Vol A4C d MOD 83.4 mL LVID d PLAX 4.18 cm F: 3.8 - 5.2 LA vol/ BSA A2C s A-L 10.5 mL/m2 LVDs 2.90 cm F: 2.2 - 3.5 LA vol/ BSA A4C s A-L 14.0 mL/m2 Ao Root d 2.95 cm F: 2.7 - 3.3 LA Vol/ BSA Biplane s A-L 13.1 mL/m2 RA Area A4C 13.39 cm2 LA Area A4C s MOD 10.91 cm2 RA Vol/ BSA A4C s A-L 18.7 mL/m2 LA Area A2C s MOD 8.72 cm2 Ao Asc Diam d 2.89 cm F: 2.3 - 3.1 LV EF A4C MOD 57.0 % LV EF Teichholz 57.1 % LV EF A2C MOD 55.5 % LVEF (Evans's) 56.55 % F: 54 - 74 LV EF Biplane MOD 56.5 % LV Volume 58.57 mL F: 46 - 106 SV 42.16 mL LV Volume Index 33.46 mL/m2 F: 29 - 61 SV Index 24.08 mL/m2 LV Vol Biplane MOD 74.6 mL FS 29.65 % M-Mode TAPSE 2.00 cm (M/F) >1.7 LV Diastology MV E' medial 0.085 (>0.07 m/s) E/A Ratio 0.8 LV E/e MED 8.55 (<14) MV E Vmax 0.73 (0.4-1.3 m/s) MV E' lateral 0.130 (>0.1 m/s) MV A Vmax 0.95 (0.4-1.3 m/s) LV E/e LAT 5.55 (<14) MV E/A Ratio 0.76 MV E/E' medial 8.58 MV E/E' lateral 5.58 Aortic Valve LVOT Area 3.26 cm2 AoV Area Vmax 2.54 cm2 LVOT Vmax 0.91 m/s AoV Area/ BSA (Vmax) 1.45 cm2/m2 LVOT Mean Jef. 0.57 m/s JOHN Mean Jef. 2.30 cm2 LVOT Peak Grad 3.3 mmHg JOHN Mean Jef. Index 1.31 cm2/m2 LVOT Mean Grad 1.6 mmHg LVOT VTI 0.171 m LVOT Diam s 2.00 cm AoV Vmax 1.16 m/s Velocity Ratio 0.78 AoV Mean Jef. 0.81 m/s AoV Peak Grad 5.4 mmHg LVOT SV 55.93 mL AoV Mean Grad 3.0 mmHg AoV VTI 0.221 m AoV Area VTI 2.53 cm2 AoV Area/ BSA (VTI) 1.44 cm/m2 Mitral Valve MV DT 233 (160-240 msec) MV PHT 68 msec MV Area PHT 3.25 cm2 MV VTI 0.234 m MV Area VTI 2.39 (4.0-6.0 cm2) Pulmonary Valve PV Vmax 0.93 (0.5-1.5 m/s) RVOT Peak Gr. 1.48 mmHg PV Peak Grad 3.5 mmHg RVOT Mean Gr. 0.80 mmHg PV Mean Grad 1.9 mmHg RVOT VTI 0.108 m PV VTI 0.153 m RVOT Vmax 0.61 m/s
== END 2023-05-13 01:12 ==
LOC: DI 00:52
PROVIDERS: PCP Nurse Practitioner Family; Visit Provider Internal Medicine Cardiovascular Disease
DX: I10 Essential (primary) hypertension (principal); I49.3 Ventricular premature depolarization; R07.9 Chest pain, unspecified
CPT/HCPCS: 93306

== ENCOUNTER 2024-06-18 02:17 | Outpatient (CLI) | payer MEDICARE, SELFPAY ==
--- NOTE | 2024-06-18 | DI.CT_ITS ---
Exam(s) CT HEAD WO/W EXAM: CT HEAD WO/W CLINICAL HISTORY: G44.52 New Daily persistent headache. TECHNIQUE: Imaging Protocol: Axial computed tomography images with coronal and sagittal reformatted images were created and reviewed. CONTRAST MATERIAL: Intravenous: Omnipaque 350 Contrast volume:structured data in ml COMPARISON: No exams were available for comparison FINDINGS: Ventricles and Extra axial spaces: Normal in size and morphology for the patient's age. Hemorrhage: None. Cerebral parenchyma: Normal. Enhancement: No suspicious enhancement. Midline shift: None. Brainstem/Cerebellum: Normal. Calvarium: Normal. Visualized Paranasal sinuses/Mastoids: Clear. IMPRESSION: Normal CT scan of the head. RADIATION DOSE DELIVERED: Total DLP DATA REPOSITORY: All CT scans at this facility are submitted to the National Radiology Data Registry (NRDR) Dose Index Registry (DIR) with the [employer] (ACR). RADIATION OPTIMIZATION: All CT scans at this facility use at least one of these dose optimization te chniques: automated exposure control; mA and/or kV adjustment per patient size (includes targeted exa ms where dose is matched to clinical indication); or iterative reconstruction.
[2024-06-18 11:34] LABS: CREATININE 1.1 mg/dL (0.55-1.02); Estimated GFR 51.43 (mL/min/1.73m2)
[2024-06-18] MEDS: Normal Saline - Diluent 50 ML VIAL IJ (11:51)
[2024-06-18] MEDS: Omnipaque 350 MG/ML 100 ML BTL IJ (11:52)
== END 2024-06-18 02:37 ==
LOC: DI 02:17
PROVIDERS: PCP Nurse Practitioner Family; Visit Provider Radiology Radiation Oncology
DX: G44.52 New daily persistent headache (NDPH) (principal)
CPT/HCPCS: 70470; 82565; J3490

== ENCOUNTER 2024-07-25 01:34 | Outpatient (CLI) | payer MEDICARE, SELFPAY ==
[2024-07-25] MEDS: Gadoterate meglumine 20 ML VIAL 15 ML IVP (12:50)
--- NOTE | 2024-07-25 13:05 | DI.MRI_ITS ---
Exam(s) MR BRAIN WO/W EXAM: MR BRAIN WO/W CLINICAL HISTORY: NEW DAILY PERSISTENT HEADACHE, G44.52, S/P RADIOTHERAPY TECHNIQUE: Multiplanar multisequence MRI of the brain was performed. CONTRAST MATERIAL: IV Contrast: 15 mL of Dotarem contrast administered. COMPARISON: CT CT HEAD WO/W from 06/18/2024 FINDINGS: VENTRICLES AND EXTRA AXIAL SPACES: Normal in size and morphology for the patient's age. HEMORRHAGE: None. CEREBRAL PARENCHYMA: No focus of restricted diffusion to suggest acute infarct. No space-occupying le chivo identified. There are few areas of hyperintense signal seen in the white matter on the FLAIR and T2 weighted images most consistent with chronic microvascular ischemic disease. MIDLINE SHIFT: None. BRAINSTEM/CEREBELLUM: Normal. CALVARIUM: Normal. ENHANCEMENT: No suspicious enhancement identified. VISUALIZED PARANASAL SINUSES/MASTOIDS: There is mild mucosal thickening in the maxillary sinuses. No air-fluid levels are seen. The remaining visualized paranasal sinuses are clear. There is a small amount of fluid seen in the left mastoid air cells. [place] OF FRIAS: Normal flow void. PITUITARY GLAND: Unremarkable. OTHER FINDINGS: IMPRESSION: 1. No evidence of an intracranial mass, enhancing lesion or acute infarct. 2. There are few scattered areas of hyperintense signal seen in the white matter likely reflecting sm all vessel ischemic disease. DATA REPOSITORY:
== END 2024-07-25 01:54 ==
LOC: DI 01:34
PROVIDERS: PCP Nurse Practitioner Family; Visit Provider Radiology Radiation Oncology
DX: I67.82 Cerebral ischemia (principal)
CPT/HCPCS: 70553

== ENCOUNTER 2024-08-13 18:33 | Outpatient (REF) | payer MEDICARE, SELFPAY ==
[2024-08-13 19:53] LABS: Abs Immature Grans 0.02 10^3/uL (0.0-0.06); Absolute Basophil Count 0.03 10^3/uL (0.0-0.2); Absolute Eosinophil Count 0.14 10^3/uL (0.0-0.7); Absolute Lymphocyte Count 0.81 10^3/uL (1.2-3.4); Absolute Monocyte Count 0.44 10^3/uL (0.1-0.8); Absolute Neutrophil Count 2.44 10^3/uL (1.2-6.7); Basophils % 0.8 %; Eosinophils % 3.6 %; HCT 36.6 % (36.0-46.0); HGB 11.8 g/dL (11.2-15.7); Immature Grans % 0.5 %; Lymphocytes % 20.9 %; MCH 29.1 pg (27.0-33.0); MCHC 32.2 % (32.0-36.0); MCV 90 fL (80-95); MPV 10.5 fL (8.0-11.0); Monocytes % 11.3 %; Neutrophils % 62.9 %; Platelet Count 202 10^3/uL (130-400); RBC 4.06 10^6/uL (3.93-5.22); RDW 12.9 % (11.7-14.6); RDW-SD 42.6 fL; WBC 3.88 10^3/uL (4.4-10.8)
[2024-08-13 20:01] LABS: Anion Gap 8.5 mmol/L (3-11); BUN 24 mg/dL (7-18); CO2 28.5 mmol/L (21.0-32.0); Calcium 9.3 mg/dL (8.5-10.1); Calculated LDL 79 mg/dL (<100); Chloride 107 mmol/L (98-107); Cholesterol 155 mg/dL (<200); Estimated GFR 57.66 (mL/min/1.73m2); Glucose 90 mg/dL (74-106); HDL Cholesterol 47 mg/dL (40-60); Potassium 4.2 mmol/L (3.5-5.1); Sodium 144 mmol/L (136-145); Triglyceride 147 mg/dL (<150)
== END 2024-08-13 18:34 | disposition home or self-care (01) ==
LOC: NCHCN 18:33
PROVIDERS: PCP Nurse Practitioner Family; Visit Provider Nurse Practitioner Family
DX: I10 Essential (primary) hypertension (principal); R51.9 Headache, unspecified; E78.5 Hyperlipidemia, unspecified
CPT/HCPCS: 80048; 80061; 85025

== ENCOUNTER 2024-10-26 00:45 | Outpatient (CLI) | payer MEDICARE, SELFPAY ==
--- NOTE | 2024-10-26 07:15 | DI.RAD_ITS ---
Exam(s) XR HIP LT COMPLETE AP PELVIS EXAM: XR HIP LT COMPLETE AP PELVIS CLINICAL HISTORY: no improvement with PT, LOWER BACK PAIN, M54.50. TECHNIQUE: 2D digital imaging was performed. Two views. COMPARISON: No exams were available for comparison FINDINGS: BONES: No acute fracture is present. No bony destructive lesion is seen. JOINTS: No dislocation present. The hip joint spaces are maintained. Mild acetabular spurring. The re are degenerative changes of the SI joints. No suspicious bony erosions. SOFT TISSUE: Normal. IMPRESSION: Degenerative changes of the sacroiliac joints. Minimal degenerative changes of the hips. DATA REPOSITORY: RADIATION DOSE DELIVERED:
--- NOTE | 2024-10-26 07:15 | DI.RAD_ITS ---
Exam(s) XR LUMBAR SPINE COMPLETE EXAM: XR LUMBAR SPINE COMPLETE CLINICAL HISTORY: no improvement with PT, LT HIP PAIN, M25.552. TECHNIQUE: 2D digital imaging was performed. Five views. COMPARISON: No exams were available for comparison FINDINGS: BONES: No fracture or destructive lesion. Vertebral body heights are maintained. Prominent endplat e osteophytes. Prominent facet hypertrophy identified throughout. DISKS: Disc space narrowing throughout. ALIGNMENT: Dextro rotoscoliosis. SOFT TISSUE: Vascular calcifications. IMPRESSION: Severe degenerative changes and scoliosis. DATA REPOSITORY: RADIATION DOSE DELIVERED:
== END 2024-10-26 01:05 ==
LOC: DI 00:46
PROVIDERS: PCP Nurse Practitioner Family; Visit Provider Nurse Practitioner Family
DX: M41.86 Other forms of scoliosis, lumbar region (principal); M16.0 Bilateral primary osteoarthritis of hip
CPT/HCPCS: 72110; 73502

== ENCOUNTER 2025-03-16 12:35 | Outpatient (REF) | payer MEDICARE, SELFPAY | END 2025-03-16 12:36 | disposition home or self-care (01) | LOC: LBN 12:35 | PROVIDERS: PCP Nurse Practitioner Family; Visit Provider Physician Assistant | DX: L02.91 Cutaneous abscess, unspecified (principal) | CPT/HCPCS: 87070; 87205 ==

== ENCOUNTER 2025-07-26 11:38 | Outpatient (CLI) | payer MEDICARE, SELFPAY ==
[2025-07-26 15:52] LABS: HCT 37.3 % (36.0-46.0); HGB 12.4 g/dL (11.2-15.7); MCH 29.3 pg (27.0-33.0); MCHC 33.2 % (32.0-36.0); MCV 88 fL (80-95); MPV 9.9 fL (8.0-11.0); Platelet Count 204 10^3/uL (130-400); RBC 4.23 10^6/uL (3.93-5.22); RDW 12.5 % (11.7-14.6); RDW-SD 40.3 fL; WBC 4.89 10^3/uL (4.4-10.8)
[2025-07-26 16:09] LABS: Iron 78 ug/dL (50-170); Total Iron Binding Capacity 274 ug/dL (250-450)
[2025-07-26 16:21] LABS: ALT 20 U/L (14-59); AST 24 U/L (15-37); Albumin 3.7 g/dL (3.4-5.0); Alkaline Phosphatase 92 U/L (46-116); Anion Gap 6.5 mmol/L (3-11); BUN 24 mg/dL (7-18); Bilirubin, Total 0.3 mg/dL (0.2-1.0); CO2 30.5 mmol/L (21.0-32.0); Calcium 9.3 mg/dL (8.5-10.1); Calculated LDL 100 mg/dL (<100); Chloride 104 mmol/L (98-107); Cholesterol 170 mg/dL (<200); Estimated GFR 51.11 (mL/min/1.73m2); Ferritin 136 ng/mL (8-252); Glucose 103 mg/dL (74-106); HDL Cholesterol 47 mg/dL (>or=50); Potassium 4.1 mmol/L (3.5-5.1); Sodium 141 mmol/L (136-145); TSH (W/Ref FT4) 1.04 uIU/mL (0.36-3.74); Total Protein 7.3 g/dL (6.4-8.2); Triglyceride 116 mg/dL (<150)
[2025-07-26 16:28] LABS: Hemoglobin A1C 5.7 % (<5.7)
== END 2025-07-26 11:39 | disposition home or self-care (01) ==
LOC: LOS 11:39
PROVIDERS: PCP Nurse Practitioner Family; Visit Provider Nurse Practitioner Family
DX: E78.5 Hyperlipidemia, unspecified (principal); R73.01 Impaired fasting glucose; R73.03 Prediabetes; R63.5 Abnormal weight gain; Z86.2 Personal history of diseases of the blood and blood-forming organs and certain disorders involving the immune mechanism
CPT/HCPCS: 36415; 80053; 80061; 85027; 82728; 83036; 83540; 83550; 84443